=== PATIENT | female | born 1995 | race Caucasian/White ===

== ENCOUNTER 2016-09-20 23:46 | Emergency (ER) | payer OTHER ==
[~2016-09-20] VITALS: Ht 165.1 cm; Wt 49.5 kg
[~2016-09-20 23:46] MED LIST: ALLEGRA ALLERG180 MG PO; AMOXICILLIN500 M1 PO; AMOXICILLIN500 MG PO; AMOXICILLIN875 MG PO; AMPICILLIN TRI500 MG PO; AURALGAN14.8 ML BOTH EARS; BACTRIM,SEPT1 TABLET PO; CEFDINIR300 MG PO; CELEXA20 MG PO; DEBROX15 ML BOTH EARS; DEPAKOTE500 MG PO; DESYREL 150 MG150 MG PO; DIVALPROEX SOD500 MG PO; DULCOLAX10 MG PR; ELIMITE 5% CREA60 GM TP; ERYTHROMYC1 APPLICAT BOTH EYES; ERYTHROMYCIN O3.5 GM BOTH EYES; FALMINA1 EACH PO; FLEXERIL10 MG PO; FLINTSTONES CO1 EAC1 PO; FLONASE16 G1 BOTH NARES; FLUCONAZOLE150 MG PO; HYDROXYZINE HCL10 MG PO; HYDROXYZINE HCL25 MG PO; IBUPROFEN800 MG PO; KALETRA 200/501 TAB PO; KEFLEX500 MG PO; LAMOTRIGINE150 MG PO; LATUDA20 MG PO; LIBRIUM25 MG PO; LITHIUM CARBON150 MG PO; LORATADINE10 M2 PO; MACROBID100 MG PO; METRONIDAZOLE500 MG PO; MOTRIN600 MG PO; MOTRIN800 MG PO; MUCINEX D ER T1 EACH PO; MUCUS ER600 MG PO; NAPROSYN500 MG PO; PNV PRENATAL P1 EACH PO; PRENATAL PLUS1 EAC3 PO; PRENATAL TABLE1 EAC3 PO; PYRIDIUM200 MG PO; SERTRALINE HCL25 MG PO; TERCONAZOLE20 GM VG; THIAMINE HCL100 MG PO; TORADOL10 MG PO; TRAZODONE HCL150 MG PO; TRAZODONE HCL50 MG PO; TRUVADA1 TABLET PO; ULTRAM50 MG PO; VALTREX1000 MG PO; ZOFRAN ODT4 MG PO; ZOLOFT25 MG PO
[2016-09-21] MEDS ORDERED: NAPROSYN500 MG PO (01:31)
[2016-09-21 02:22] VITALS: BP 101/71
== END 2016-09-21 02:23 | disposition home or self-care (01) ==
LOC: EME 23:46 → RME 23:46
DX: S80.01XA Contusion of right knee, initial encounter (principal); W19.XXXA Unspecified fall, initial encounter; F17.200 Nicotine dependence, unspecified, uncomplicated
CPT/HCPCS: 73564; 99281; 99283

== ENCOUNTER 2016-10-19 21:44 | Emergency (ER) | payer OTHER ==
[~2016-10-19] VITALS: Ht 165.1 cm; Wt 51.0 kg
[2016-10-19 23:22] LABS: ADD MIUA? YES; BILIRUBIN NEGATIVE; BLOOD MODERATE; COLOR STRAW ((YELLOW)); GLUCOSE (STRIP) NEGATIVE; KETONES NEGATIVE; LEUKOCYTES NEGATIVE; NITRITE NEGATIVE; PROTEIN (STRIP) NEGATIVE; SPECIFIC GRAVITY 1.011 (1.000-1.030); UROBILINOGEN 0.2 MG/DL (0.2-1.0)
[2016-10-19 23:30] LABS: HEMATOCRIT 46.6 % (36.0-46.0); MCH 31.1 PG (29.0-34.0); MCHC 33.3 G/DL (30.0-36.0); MCV 93.6 FL (83-99); MEAN PLAT.VOLUME 9.5 uM^3 (9.5-12.4); PLATELET COUNT 239 K/uL (156-360); RBC DIS.WIDTH-CV 12.2 % (11.8-14.6); RBC DIS.WIDTH-SD 42.5 % (39-53); RED BLOOD COUNT 4.98 M/uL (3.80-5.20); WHITE BLOOD COUNT 8.2 K/uL (4.1-10.2)
[2016-10-19 23:35] LABS: BACTERIA NONE SEEN /HPF; COCAINE NEGATIVE (150 ng/mL); EPITHELIAL CELLS RARE /HPF; METHAMPHETAMINE NEGATIVE (500 ng/mL); MUCUS TRACE /LPF; OPIATES (MORPHINE) NEGATIVE (100 ng/mL); PHENCYCLIDINE NEGATIVE (25 ng/mL); RED BLOOD CELLS 15-20 /HPF (0-5); THC CANNABINOIDS NEGATIVE (50 ng/mL); UCUL ADDED? NO; WHITE BLOOD CELLS 0-5 /HPF (0-5)
[2016-10-19 23:36] LABS: AMPHETAMINE NEGATIVE (500 ng/mL); BARBITURATES NEGATIVE (200 ng/mL); BENZODIAZEPINES NEGATIVE (150 ng/mL); INTERNAL CONTROLS VALID? YES; METHADONE NEGATIVE (200 ng/mL); OXYCODONE NEGATIVE (100 ng/mL); PROPOXYPHENE NEGATIVE (300 ng/mL); TRICYCLIC ANTIDEPRESSANTS NEGATIVE (300 ng/mL)
[2016-10-19 23:38] LABS: CHLORIDE 104 mEq/L (99-109); POTASSIUM 4.1 mEq/L (3.7-5.4); SODIUM 140 mEq/L (136-147)
[2016-10-19 23:40] LABS: GLUCOSE 92 mg/dL (70-99)
[2016-10-19 23:41] LABS: ANION GAP 11 MEQ/L (2-14)
[2016-10-19 23:43] LABS: SERUM ETHYL ALCOHOL < 10 mg/dL
[2016-10-19 23:44] LABS: GFR ESTIMATE (CALCULATED) > 59 mL/min/
[2016-10-19 23:45] LABS: UREA NITROGEN (BUN) 19 mg/dL (9-23)
[2016-10-19 23:53] LABS: QUANTITATIVE HCG < 4.0 MIU/ML
[2016-10-20 00:21] VITALS: BP 144/98
== END 2016-10-20 00:21 | disposition home or self-care (01) ==
LOC: EME 21:44
PROVIDERS: Emergency Medicine
DX: F32.9 Major depressive disorder, single episode, unspecified (principal); F43.9 Reaction to severe stress, unspecified; R31.9 Hematuria, unspecified; Z91.14 Patient's other noncompliance with medication regimen; R45.850 Homicidal ideations; R45.851 Suicidal ideations; J45.909 Unspecified asthma, uncomplicated; F90.0 Attention-deficit hyperactivity disorder, predominantly inattentive type; G93.1 Anoxic brain damage, not elsewhere classified; F20.9 Schizophrenia, unspecified; F14.10 Cocaine abuse, uncomplicated; F84.5 Asperger's syndrome; F17.200 Nicotine dependence, unspecified, uncomplicated
CPT/HCPCS: 80048; 81003; 84702; 85027; 90839; 99281; 99284; G0480

== ENCOUNTER 2016-11-03 00:25 | Emergency (ER) | payer OTHER ==
[~2016-11-03] VITALS: Ht 165.1 cm; Wt 51.3 kg
[2016-11-03 01:00] LABS: HEMATOCRIT 44.9 % (36.0-46.0); MCH 30.7 PG (29.0-34.0); MCHC 32.7 G/DL (30.0-36.0); MCV 93.7 FL (83-99); MEAN PLAT.VOLUME 9.4 uM^3 (9.5-12.4); PLATELET COUNT 231 K/uL (156-360); RBC DIS.WIDTH-SD 41.8 % (39-53); RED BLOOD COUNT 4.79 M/uL (3.80-5.20); WHITE BLOOD COUNT 7.9 K/uL (4.1-10.2)
[2016-11-03 01:13] LABS: CHLORIDE 111 mEq/L (99-109); SODIUM 145 mEq/L (136-147)
[2016-11-03 01:15] LABS: GLUCOSE 85 mg/dL (70-99)
[2016-11-03 01:17] LABS: ANION GAP 10 MEQ/L (2-14)
[2016-11-03 01:18] LABS: SERUM ETHYL ALCOHOL 76 mg/dL
[2016-11-03 01:19] LABS: GFR ESTIMATE (CALCULATED) > 59 mL/min/
[2016-11-03 01:20] LABS: UREA NITROGEN (BUN) 16 mg/dL (9-23)
[2016-11-03 01:31] LABS: QUANTITATIVE HCG < 4.0 MIU/ML
[2016-11-03] MEDS ORDERED: LIBRIUM25 MG PO (01:49)
[2016-11-03] MEDS ORDERED: THIAMINE HCL100 MG PO (01:49)
[2016-11-03 02:57] LABS: ADD MIUA? NO; BILIRUBIN NEGATIVE; BLOOD NEGATIVE; COLOR YELLOW ((YELLOW)); GLUCOSE (STRIP) NEGATIVE; KETONES NEGATIVE; LEUKOCYTES NEGATIVE; NITRITE NEGATIVE; PROTEIN (STRIP) NEGATIVE; SPECIFIC GRAVITY 1.009 (1.000-1.030); UCUL ADDED? NO; UROBILINOGEN 0.2 MG/DL (0.2-1.0)
[2016-11-03 03:06] LABS: ADD MEDTOX COMMENT Y; AMPHETAMINE NEGATIVE (500 ng/mL); BARBITURATES NEGATIVE (200 ng/mL); BENZODIAZEPINES NEGATIVE (150 ng/mL); COCAINE PRESUMPTIVE POSITIVE (150 ng/mL); INTERNAL CONTROLS VALID? YES; METHADONE NEGATIVE (200 ng/mL); METHAMPHETAMINE NEGATIVE (500 ng/mL); OPIATES (MORPHINE) NEGATIVE (100 ng/mL); OXYCODONE NEGATIVE (100 ng/mL); PHENCYCLIDINE NEGATIVE (25 ng/mL); PROPOXYPHENE NEGATIVE (300 ng/mL); THC CANNABINOIDS NEGATIVE (50 ng/mL); TRICYCLIC ANTIDEPRESSANTS NEGATIVE (300 ng/mL)
[2016-11-03 04:10] VITALS: BP 100/55
== END 2016-11-03 04:26 | disposition home or self-care (01) ==
LOC: EME 00:25
PROVIDERS: Emergency Medicine
DX: F10.10 Alcohol abuse, uncomplicated (principal); F19.10 Other psychoactive substance abuse, uncomplicated; R51 Headache; F17.200 Nicotine dependence, unspecified, uncomplicated; Y90.3 Blood alcohol level of 60-79 mg/100 ml; Z88.8 Allergy status to other drugs, medicaments and biological substances; Z91.041 Radiographic dye allergy status; Z91.013 Allergy to seafood
CPT/HCPCS: 80048; 81003; 84702; 84999; 85027; 99281; 99284; G0480

== ENCOUNTER 2016-11-12 08:44 | Emergency (ER) | payer OTHER ==
[~2016-11-12] VITALS: Ht 166.4 cm; Wt 48.2 kg
[2016-11-12 09:15] LABS: EOSINOPHIL (%) 0.6 % (0-5); HEMATOCRIT 42.3 % (36.0-46.0); IMMATURE GRANULOCYTE (%) 0.1 % (0.0-0.7); INSTRUMENT ABS NEUTROPHIL CT 3.9 K/uL; LYMPHOCYTE COUNT 2.5 K/uL (1.0-2.8); MCH 30.7 PG (29.0-34.0); MCHC 33.3 G/DL (30.0-36.0); MCV 92.2 FL (83-99); MEAN PLAT.VOLUME 9.5 uM^3 (9.5-12.4); MONOCYTE (%) 7.9 % (3-12); MONOCYTE COUNT 0.6 K/uL (0-0.8); NEUTROPHIL (%) 55.1 % (45-76); NEUTROPHIL COUNT 3.9 K/uL (1.8-6.4); PLATELET COUNT 222 K/uL (156-360); RBC DIS.WIDTH-CV 12.4 % (11.8-14.6); RBC DIS.WIDTH-SD 41.4 % (39-53); RED BLOOD COUNT 4.59 M/uL (3.80-5.20); WHITE BLOOD COUNT 7.1 K/uL (4.1-10.2)
[2016-11-12 09:23] LABS: CHLORIDE 107 mEq/L (99-109); POTASSIUM 3.5 mEq/L (3.7-5.4); SODIUM 143 mEq/L (136-147)
[2016-11-12 09:25] LABS: GLUCOSE 87 mg/dL (70-99)
[2016-11-12 09:26] LABS: ANION GAP 12 MEQ/L (2-14)
[2016-11-12 09:28] LABS: SERUM ETHYL ALCOHOL < 10 mg/dL
[2016-11-12 09:29] LABS: GFR ESTIMATE (CALCULATED) > 59 mL/min/
[2016-11-12 09:30] LABS: UREA NITROGEN (BUN) 16 mg/dL (9-23)
[2016-11-12 09:37] LABS: QUANTITATIVE HCG < 4.0 MIU/ML
[2016-11-12 11:16] LABS: ADD MIUA? YES; BILIRUBIN NEGATIVE; BLOOD NEGATIVE; COLOR YELLOW ((YELLOW)); GLUCOSE (STRIP) NEGATIVE; KETONES 20; LEUKOCYTES SMALL; NITRITE NEGATIVE; PROTEIN (STRIP) 30; SPECIFIC GRAVITY 1.024 (1.000-1.030); UROBILINOGEN 0.2 MG/DL (0.2-1.0)
[2016-11-12 11:29] LABS: COCAINE PRESUMPTIVE POSITIVE (150 ng/mL); PHENCYCLIDINE NEGATIVE (25 ng/mL); THC CANNABINOIDS PRESUMPTIVE POSITIVE (50 ng/mL)
[2016-11-12 11:30] LABS: ADD MEDTOX COMMENT Y; AMPHETAMINE NEGATIVE (500 ng/mL); BARBITURATES NEGATIVE (200 ng/mL); BENZODIAZEPINES NEGATIVE (150 ng/mL); INTERNAL CONTROLS VALID? YES; METHADONE NEGATIVE (200 ng/mL); METHAMPHETAMINE NEGATIVE (500 ng/mL); OPIATES (MORPHINE) NEGATIVE (100 ng/mL); OXYCODONE NEGATIVE (100 ng/mL); PROPOXYPHENE NEGATIVE (300 ng/mL); TRICYCLIC ANTIDEPRESSANTS NEGATIVE (300 ng/mL)
[2016-11-12 11:38] LABS: BACTERIA 2+ /HPF; CASTS PRESENT /LPF; EPITHELIAL CELLS 1+ /HPF; HYALINE CASTS 0-5 /LPF; MUCUS 3+ /LPF; RED BLOOD CELLS 0-5 /HPF (0-5); WHITE BLOOD CELLS 20-30 /HPF (0-5)
[2016-11-12 12:54] VITALS: BP 91/57
== END 2016-11-12 12:56 ==
LOC: EME 08:44
PROVIDERS: Nurse Practitioner Family
DX: F33.1 Major depressive disorder, recurrent, moderate (principal); F14.10 Cocaine abuse, uncomplicated; F12.10 Cannabis abuse, uncomplicated; Z91.5 Personal history of self-harm; F17.200 Nicotine dependence, unspecified, uncomplicated; Z86.73 Personal history of transient ischemic attack (TIA), and cerebral infarction without residual deficits
CPT/HCPCS: 80048; 81003; 84702; 84999; 85025; 90837; 99281; 99285; G0480

== ENCOUNTER 2016-11-21 01:48 | Emergency (ER) | payer OTHER ==
[~2016-11-21] VITALS: Ht 165.1 cm; Wt 49.8 kg
[2016-11-21 05:28] VITALS: BP 99/65
== END 2016-11-21 05:29 | disposition home or self-care (01) ==
LOC: EME 01:48
DX: S09.90XA Unspecified injury of head, initial encounter (principal); S13.4XXA Sprain of ligaments of cervical spine, initial encounter; S60.221A Contusion of right hand, initial encounter; Y04.8XXA Assault by other bodily force, initial encounter; Y07.50 Unspecified non-family member, perpetrator of maltreatment and neglect; Z88.8 Allergy status to other drugs, medicaments and biological substances; Z91.013 Allergy to seafood; Z91.041 Radiographic dye allergy status
CPT/HCPCS: 70450; 72125; 73130; 99281; 99283

== ENCOUNTER 2017-01-24 15:53 | Emergency (ER) | payer OTHER ==
[~2017-01-24] VITALS: Ht 165.1 cm; Wt 48.1 kg
[2017-01-24 16:38] LABS: HEMATOCRIT 43.7 % (36.0-46.0); MCH 30.7 PG (29.0-34.0); MCV 93.2 FL (83-99); MEAN PLAT.VOLUME 9.2 uM^3 (9.5-12.4); PLATELET COUNT 197 K/uL (156-360); RBC DIS.WIDTH-CV 12.7 % (11.8-14.6); RBC DIS.WIDTH-SD 43.3 % (39-53); RED BLOOD COUNT 4.69 M/uL (3.80-5.20); WHITE BLOOD COUNT 5.7 K/uL (4.1-10.2)
[2017-01-24 16:46] LABS: CHLORIDE 108 mEq/L (99-109); POTASSIUM 4.1 mEq/L (3.7-5.4); SODIUM 144 mEq/L (136-147)
[2017-01-24 16:48] LABS: GLUCOSE 80 mg/dL (70-99)
[2017-01-24 16:49] LABS: ANION GAP 9 MEQ/L (2-14)
[2017-01-24 16:50] LABS: TOTAL BILIRUBIN 0.9 mg/dL (0.0-1.0)
[2017-01-24 16:52] LABS: ALKALINE PHOSPHATASE 43 IU/L (3-129); GFR ESTIMATE (CALCULATED) > 59 mL/min/
[2017-01-24 16:53] LABS: UREA NITROGEN (BUN) 16 mg/dL (9-23)
[2017-01-24 17:02] LABS: QUANTITATIVE HCG < 4.0 MIU/ML
[2017-01-24 18:08] LABS: ADD MIUA? YES; BILIRUBIN NEGATIVE; BLOOD NEGATIVE; COLOR AMBER ((YELLOW)); GLUCOSE (STRIP) NEGATIVE; KETONES 20; LEUKOCYTES SMALL; NITRITE NEGATIVE; PROTEIN (STRIP) 30; SPECIFIC GRAVITY 1.023 (1.000-1.030)
[2017-01-24 18:44] LABS: BACTERIA 1+ /HPF; CASTS PRESENT /LPF; CRYSTALS NONE SEEN; EPITHELIAL CELLS 1+ /HPF; HYALINE CASTS RARE /LPF; MUCUS 3+ /LPF; RED BLOOD CELLS 0-5 /HPF (0-5); UCUL ADDED? NO; WHITE BLOOD CELLS 0-5 /HPF (0-5)
[2017-01-24] MEDS ORDERED: CIPRO500 MG PO (21:30)
[2017-01-24 21:36] VITALS: BP 106/60
[2017-01-26 12:40] LABS: CHLAMYDIA TRACHOMATIS NEGATIVE; NEISSERIA GONORRHOEAE NEGATIVE
== END 2017-01-24 21:37 | disposition home or self-care (01) ==
LOC: EME 15:53
PROVIDERS: Emergency Medicine
DX: N39.0 Urinary tract infection, site not specified (principal); N83.292 Other ovarian cyst, left side; Z86.73 Personal history of transient ischemic attack (TIA), and cerebral infarction without residual deficits; J45.909 Unspecified asthma, uncomplicated; F84.5 Asperger's syndrome; Z95.1 Presence of aortocoronary bypass graft; F17.200 Nicotine dependence, unspecified, uncomplicated
CPT/HCPCS: 76856; 80053; 81003; 84702; 85027; 87491; 87591; 99281; 99283

== ENCOUNTER 2017-01-29 08:09 | Emergency (ER) | payer OTHER ==
[~2017-01-29] VITALS: Ht 165.1 cm; Wt 51.0 kg
[~2017-01-29 08:09] MED LIST changes: +CIPRO500 MG PO
[2017-01-29 08:44] LABS: EOSINOPHIL (%) 0.9 % (0-5); EOSINOPHIL COUNT 0.1 K/uL (0-0.3); HEMATOCRIT 39.1 % (36.0-46.0); IMMATURE GRANULOCYTE (%) 0.2 % (0.0-0.7); LYMPHOCYTE COUNT 2.3 K/uL (1.0-2.8); MCH 30.6 PG (29.0-34.0); MCHC 32.7 G/DL (30.0-36.0); MCV 93.5 FL (83-99); MEAN PLAT.VOLUME 9.6 uM^3 (9.5-12.4); MONOCYTE (%) 5.3 % (3-12); MONOCYTE COUNT 0.3 K/uL (0-0.8); NEUTROPHIL (%) 53.4 % (45-76); PLATELET COUNT 171 K/uL (156-360); RBC DIS.WIDTH-CV 12.7 % (11.8-14.6); RBC DIS.WIDTH-SD 43.5 % (39-53); RED BLOOD COUNT 4.18 M/uL (3.80-5.20); WHITE BLOOD COUNT 5.7 K/uL (4.1-10.2)
[2017-01-29 09:00] LABS: CHLORIDE 109 mEq/L (99-109); POTASSIUM 4.1 mEq/L (3.7-5.4); SODIUM 142 mEq/L (136-147)
[2017-01-29 09:01] LABS: GLUCOSE 94 mg/dL (70-99)
[2017-01-29 09:03] LABS: ANION GAP 5 MEQ/L (2-14)
[2017-01-29 09:05] LABS: GFR ESTIMATE (CALCULATED) > 59 mL/min/
[2017-01-29 09:06] LABS: UREA NITROGEN (BUN) 12 mg/dL (9-23)
[2017-01-29 09:14] LABS: QUANTITATIVE HCG < 4.0 MIU/ML
[2017-01-29 09:45] LABS: ADD MIUA? YES; BILIRUBIN NEGATIVE; BLOOD NEGATIVE; COLOR YELLOW ((YELLOW)); GLUCOSE (STRIP) NEGATIVE; KETONES NEGATIVE; LEUKOCYTES MODERATE; NITRITE NEGATIVE; PROTEIN (STRIP) NEGATIVE; SPECIFIC GRAVITY 1.013 (1.000-1.030); UROBILINOGEN 0.2 MG/DL (0.2-1.0)
[2017-01-29 09:49] LABS: BACTERIA NONE SEEN /HPF; EPITHELIAL CELLS RARE /HPF; MUCUS TRACE /LPF; RED BLOOD CELLS 0-5 /HPF (0-5); WHITE BLOOD CELLS 0-5 /HPF (0-5)
[2017-01-29 11:32] VITALS: BP 100/56
== END 2017-01-29 11:41 | disposition home or self-care (01) ==
LOC: EME → EDBD 08:09 → EME 11:41
PROVIDERS: Physician Assistant
DX: B34.9 Viral infection, unspecified (principal); R05 Cough; R10.9 Unspecified abdominal pain; R06.02 Shortness of breath; R11.0 Nausea; R07.9 Chest pain, unspecified; F14.90 Cocaine use, unspecified, uncomplicated; F17.200 Nicotine dependence, unspecified, uncomplicated; Z59.0 Homelessness
CPT/HCPCS: 71020; 80048; 81003; 84702; 85025; 99281; 99283

== ENCOUNTER 2017-02-04 20:19 | Emergency (ER) | payer OTHER ==
[~2017-02-04] VITALS: Ht 165.1 cm; Wt 49.5 kg
[2017-02-04 22:18] VITALS: BP 121/96
[2017-02-05] MEDS ORDERED: MOTRIN600 MG PO (21:39)
== END 2017-02-04 22:18 ==
LOC: EME → EDBD 20:19 → EME 20:19
DX: S31.144A Puncture wound of abdominal wall with foreign body, left lower quadrant without penetration into peritoneal cavity, initial encounter (principal); Y35.893A Legal intervention involving other specified means, suspect injured, initial encounter
CPT/HCPCS: 99281; 99284

== ENCOUNTER 2017-02-05 20:31 | Emergency (ER) | payer OTHER ==
[~2017-02-05] VITALS: Ht 165.1 cm; Wt 49.5 kg
[2017-02-05] MEDS ORDERED: MOTRIN600 MG PO (21:39)
[2017-02-05 22:04] VITALS: BP 111/64
== END 2017-02-05 22:05 | disposition home or self-care (01) ==
LOC: EME 20:31
DX: S30.811D Abrasion of abdominal wall, subsequent encounter (principal); Z48.00 Encounter for change or removal of nonsurgical wound dressing; Y35 Legal intervention; F17.200 Nicotine dependence, unspecified, uncomplicated; Z91.041 Radiographic dye allergy status; Z88.8 Allergy status to other drugs, medicaments and biological substances
CPT/HCPCS: 99281; 99284

== ENCOUNTER 2017-02-20 08:00 | Emergency (ER) | payer OTHER ==
[~2017-02-20] VITALS: Ht 165.1 cm; Wt 49.2 kg
[2017-02-20 09:13] LABS: INTERNAL CONTROL VALID? YES
[2017-02-20] MEDS ORDERED: ZITHROMAX Z-PA250 MG PO (10:10)
[2017-02-20 10:30] VITALS: BP 105/64
== END 2017-02-20 10:56 | disposition home or self-care (01) ==
LOC: EME 08:00
PROVIDERS: Physician Assistant
DX: J20.9 Acute bronchitis, unspecified (principal); R11.0 Nausea; F17.200 Nicotine dependence, unspecified, uncomplicated
CPT/HCPCS: 71020; 84703; 99281; 99283

== ENCOUNTER 2017-02-27 03:20 | Emergency (ER) | payer OTHER ==
[~2017-02-27] VITALS: Ht 165.1 cm; Wt 50.1 kg
[~2017-02-27 03:20] MED LIST changes: +ZITHROMAX Z-PA250 MG PO
[2017-02-27 04:46] LABS: INFLUENZA A VIRAL ANTIGEN NEGATIVE; INFLUENZA B VIRAL ANTIGEN NEGATIVE
[2017-02-27 04:58] LABS: ADD MIUA? YES; BILIRUBIN NEGATIVE; BLOOD NEGATIVE; COLOR YELLOW ((YELLOW)); GLUCOSE (STRIP) NEGATIVE; KETONES NEGATIVE; LEUKOCYTES MODERATE; NITRITE NEGATIVE; PROTEIN (STRIP) NEGATIVE; SPECIFIC GRAVITY 1.014 (1.000-1.030); UROBILINOGEN 0.2 MG/DL (0.2-1.0)
[2017-02-27 04:59] LABS: INTERNAL CONTROL VALID? YES
[2017-02-27 05:09] LABS: BACTERIA NONE SEEN /HPF; EPITHELIAL CELLS RARE /HPF; MUCUS TRACE /LPF; RED BLOOD CELLS 0-5 /HPF (0-5); UCUL ADDED? NO; WHITE BLOOD CELLS 0-5 /HPF (0-5)
[2017-02-27] MEDS ORDERED: KEFLEX500 MG PO (05:22)
[2017-02-27 05:45] VITALS: BP 97/57
== END 2017-02-27 05:45 | disposition home or self-care (01) ==
LOC: EME 03:20
PROVIDERS: Emergency Medicine
DX: J06.9 Acute upper respiratory infection, unspecified (principal); N39.0 Urinary tract infection, site not specified; R19.7 Diarrhea, unspecified; F17.200 Nicotine dependence, unspecified, uncomplicated
CPT/HCPCS: 71020; 81003; 84703; 87502; 94640; 99281; 99284

== ENCOUNTER 2017-05-12 23:30 | Emergency (ER) | payer OTHER ==
[~2017-05-12] VITALS: Ht 165.1 cm; Wt 53.3 kg
[2017-05-13 00:07] LABS: HEMATOCRIT 38.7 % (36.0-46.0); MCHC 33.9 G/DL (30.0-36.0); MCV 91.7 FL (83-99); MEAN PLAT.VOLUME 9.2 uM^3 (9.5-12.4); PLATELET COUNT 152 K/uL (156-360); RBC DIS.WIDTH-CV 11.7 % (11.8-14.6); RBC DIS.WIDTH-SD 39.5 % (39-53); RED BLOOD COUNT 4.22 M/uL (3.80-5.20)
[2017-05-13 00:14] LABS: CHLORIDE 105 mEq/L (99-109); SODIUM 138 mEq/L (136-147)
[2017-05-13 00:16] LABS: GLUCOSE 100 mg/dL (70-99)
[2017-05-13 00:17] LABS: ANION GAP 8 MEQ/L (2-14)
[2017-05-13 00:20] LABS: GFR ESTIMATE (CALCULATED) > 59 mL/min/; UREA NITROGEN (BUN) 12 mg/dL (9-23)
[2017-05-13 00:31] LABS: QUANTITATIVE HCG < 4.0 MIU/ML
[2017-05-13 02:09] LABS: TROP-I INTERPRETATION NEGATIVE; TROPONIN-I 0.05 ng/mL (0.0-0.30)
[2017-05-13 02:10] LABS: TOTAL BILIRUBIN 0.2 mg/dL (0.0-1.0)
[2017-05-13 02:11] LABS: ALKALINE PHOSPHATASE 61 IU/L (3-129)
[2017-05-13 02:14] LABS: DIRECT BILIRUBIN 0.1 mg/dL (0.0-0.3)
[2017-05-13 02:15] LABS: LIPASE 23 U/L (1.0-51.0)
[2017-05-13 02:43] LABS: ADD MIUA? YES; BILIRUBIN NEGATIVE; BLOOD SMALL; COLOR STRAW ((YELLOW)); GLUCOSE (STRIP) NEGATIVE; KETONES NEGATIVE; LEUKOCYTES LARGE; NITRITE NEGATIVE; PROTEIN (STRIP) NEGATIVE; SPECIFIC GRAVITY 1.009 (1.000-1.030); UROBILINOGEN 0.2 MG/DL (0.2-1.0)
[2017-05-13 03:20] LABS: RED BLOOD CELLS 0-5 /HPF (0-5)
[2017-05-13 03:21] LABS: EPITHELIAL CELLS 1+ /HPF; MUCUS NONE SEEN /LPF
[2017-05-13 03:22] LABS: BACTERIA 1+ /HPF; CASTS NONE SEEN /LPF; CRYSTALS NONE SEEN; UCUL ADDED? YES
[2017-05-13] MEDS ORDERED: FLAGYL250 MG PO (03:42)
[2017-05-13] MEDS ORDERED: BACTRIM,SEPT1 TABLET PO (03:42)
[2017-05-13 04:14] VITALS: BP 120/75
[2017-05-14 13:42] LABS: CHLAMYDIA TRACHOMATIS NEGATIVE; NEISSERIA GONORRHOEAE NEGATIVE
== END 2017-05-13 04:15 | disposition home or self-care (01) ==
LOC: EME 23:30
PROVIDERS: Emergency Medicine; Physician Assistant
DX: N39.0 Urinary tract infection, site not specified (principal); N76.0 Acute vaginitis; R51 Headache; R55 Syncope and collapse; J45.909 Unspecified asthma, uncomplicated; F90.9 Attention-deficit hyperactivity disorder, unspecified type; F31.9 Bipolar disorder, unspecified; F84.5 Asperger's syndrome; F20.9 Schizophrenia, unspecified; F17.200 Nicotine dependence, unspecified, uncomplicated; Z88.8 Allergy status to other drugs, medicaments and biological substances; Z87.440 Personal history of urinary (tract) infections; M41.9 Scoliosis, unspecified
CPT/HCPCS: 70450; 80048; 80076; 81003; 83690; 84484; 84702; 85027; 87086; 87210; 87491; 87591; 93005; 99281; 99284

== ENCOUNTER 2017-05-29 08:27 | Emergency (ER) | payer OTHER ==
[~2017-05-29] VITALS: Ht 165.1 cm; Wt 53.5 kg
[~2017-05-29 08:27] MED LIST changes: +FLAGYL250 MG PO; +PREDNISONE20 MG PO
[2017-05-29 09:19] LABS: HEMATOCRIT 37.1 % (36.0-46.0); MCHC 33.7 G/DL (30.0-36.0); MCV 92.1 FL (83-99); RBC DIS.WIDTH-CV 12.2 % (11.8-14.6); RBC DIS.WIDTH-SD 40.5 % (39-53); RED BLOOD COUNT 4.03 M/uL (3.80-5.20)
[2017-05-29 09:21] LABS: PLATELET COUNT 233 K/uL (156-360)
[2017-05-29 09:29] LABS: CHLORIDE 107 mEq/L (99-109); POTASSIUM 3.4 mEq/L (3.7-5.4); SODIUM 143 mEq/L (136-147)
[2017-05-29 09:31] LABS: GLUCOSE 128 mg/dL (70-99)
[2017-05-29 09:32] LABS: ANION GAP 10 MEQ/L (2-14)
[2017-05-29 09:35] LABS: GFR ESTIMATE (CALCULATED) > 59 mL/min/
[2017-05-29 09:36] LABS: UREA NITROGEN (BUN) 13 mg/dL (9-23)
[2017-05-29 09:44] LABS: QUANTITATIVE HCG < 4.0 MIU/ML
[2017-05-29] MEDS ORDERED: ULTRAM50 MG PO (10:16)
[2017-05-29] MEDS ORDERED: ZOFRAN ODT4 MG PO (10:16)
[2017-05-29 10:32] LABS: ADD MIUA? YES; BILIRUBIN NEGATIVE; BLOOD SMALL; COLOR AMBER ((YELLOW)); GLUCOSE (STRIP) NEGATIVE; KETONES NEGATIVE; LEUKOCYTES LARGE; NITRITE NEGATIVE; PROTEIN (STRIP) 30; SPECIFIC GRAVITY 1.026 (1.000-1.030)
[2017-05-29 10:45] LABS: BACTERIA RARE /HPF; EPITHELIAL CELLS 3+ /HPF; MUCUS 4+ /LPF; RED BLOOD CELLS 40-50 /HPF (0-5); WHITE BLOOD CELLS TNTC /HPF (0-5)
[2017-05-29] MEDS ORDERED: BACTRIM,SEPT1 TABLET PO (10:55)
[2017-05-29 11:29] VITALS: BP 115/67
== END 2017-05-29 11:30 | disposition home or self-care (01) ==
LOC: EME → EDBD 08:27 → EME 11:30
PROVIDERS: Nurse Practitioner Family
DX: B02.9 Zoster without complications (principal); N39.0 Urinary tract infection, site not specified; R11.2 Nausea with vomiting, unspecified; R10.84 Generalized abdominal pain; J45.909 Unspecified asthma, uncomplicated; F90.9 Attention-deficit hyperactivity disorder, unspecified type; F20.9 Schizophrenia, unspecified; F84.5 Asperger's syndrome; F17.200 Nicotine dependence, unspecified, uncomplicated
CPT/HCPCS: 80048; 81003; 84702; 85027; 99281; 99283

== ENCOUNTER 2017-06-13 16:44 | Emergency (ER) | payer OTHER ==
[~2017-06-13] VITALS: Ht 165.1 cm; Wt 47.6 kg
[2017-06-13 17:48] LABS: ADD MIUA? YES; BILIRUBIN NEGATIVE; BLOOD SMALL; COLOR YELLOW ((YELLOW)); GLUCOSE (STRIP) NEGATIVE; KETONES 5; LEUKOCYTES LARGE; NITRITE NEGATIVE; PROTEIN (STRIP) NEGATIVE; SPECIFIC GRAVITY 1.016 (1.000-1.030); UROBILINOGEN 0.2 MG/DL (0.2-1.0)
[2017-06-13 17:51] LABS: INTERNAL CONTROL VALID? YES
[2017-06-13 18:05] LABS: BACTERIA RARE /HPF; EPITHELIAL CELLS RARE /HPF; MUCUS TRACE /LPF; RED BLOOD CELLS 20-30 /HPF (0-5); UCUL ADDED? YES
[2017-06-13] MEDS ORDERED: MACROBID100 MG PO (18:14)
[2017-06-13] MEDS ORDERED: FLAGYL500 MG PO (18:14)
[2017-06-13 19:46] VITALS: BP 116/64
[2017-06-15 13:12] LABS: CHLAMYDIA TRACHOMATIS NEGATIVE; NEISSERIA GONORRHOEAE NEGATIVE
== END 2017-06-13 19:47 | disposition home or self-care (01) ==
LOC: EME 16:44
PROVIDERS: Emergency Medicine
DX: N39.0 Urinary tract infection, site not specified (principal); A59.01 Trichomonal vulvovaginitis; N76.0 Acute vaginitis; J45.909 Unspecified asthma, uncomplicated; F90.9 Attention-deficit hyperactivity disorder, unspecified type; F43.10 Post-traumatic stress disorder, unspecified; F84.5 Asperger's syndrome; F17.200 Nicotine dependence, unspecified, uncomplicated; F20.9 Schizophrenia, unspecified; Z88.8 Allergy status to other drugs, medicaments and biological substances
CPT/HCPCS: 81003; 84703; 87086; 87210; 87491; 87591; 99281; 99284

== ENCOUNTER 2017-09-05 04:38 | Emergency (ER) | payer OTHER ==
[~2017-09-05] VITALS: Ht 165.1 cm; Wt 48.0 kg
[~2017-09-05 04:38] MED LIST changes: +FLAGYL500 MG PO
[2017-09-05 05:56] VITALS: BP 100/56
== END 2017-09-05 05:57 | disposition home or self-care (01) ==
LOC: EME 04:38
PROVIDERS: Emergency Medicine
DX: J02.9 Acute pharyngitis, unspecified (principal); F17.200 Nicotine dependence, unspecified, uncomplicated; J45.909 Unspecified asthma, uncomplicated; F90.9 Attention-deficit hyperactivity disorder, unspecified type; F43.10 Post-traumatic stress disorder, unspecified; F20.9 Schizophrenia, unspecified; F84.5 Asperger's syndrome; Z88.8 Allergy status to other drugs, medicaments and biological substances
CPT/HCPCS: 87502; 87651 90; 99281; 99283

== ENCOUNTER 2017-10-15 15:02 | Emergency (ER) | payer OTHER ==
[~2017-10-15] VITALS: Ht 165.1 cm; Wt 47.2 kg
[2017-10-15 17:52] LABS: HEMATOCRIT 41.2 % (36.0-46.0); HEMOGLOBIN 13.8 G/DL (11.9-15.5); MCH 30.1 PG (29.0-34.0); MCHC 33.5 G/DL (30.0-36.0); PLATELET COUNT 198 K/uL (156-360); RBC DIS.WIDTH-CV 12.2 % (11.8-14.6); RBC DIS.WIDTH-SD 39.5 % (39-53); RED BLOOD COUNT 4.58 M/uL (3.80-5.20); WHITE BLOOD COUNT 9.2 K/uL (4.1-10.2)
[2017-10-15 18:01] LABS: CHLORIDE 102 mEq/L (99-109); POTASSIUM 4.6 mEq/L (3.7-5.4); SODIUM 136 mEq/L (136-147)
[2017-10-15 18:02] LABS: GLUCOSE 86 mg/dL (70-99)
[2017-10-15 18:06] LABS: CREATININE 0.7 mg/dL (0.6-1.3); GFR ESTIMATE (CALCULATED) > 59 mL/min/
[2017-10-15 18:07] LABS: UREA NITROGEN (BUN) 14 mg/dL (9-23)
[2017-10-15 18:17] LABS: QUANTITATIVE HCG < 4.0 MIU/ML
[2017-10-15 19:42] LABS: SOURCE SWAB
[2017-10-15] MEDS ORDERED: ACYCLOVIR800 MG PO (19:54)
[2017-10-15 21:48] VITALS: BP 113/73
== END 2017-10-15 21:51 | disposition home or self-care (01) ==
LOC: EME 15:02
PROVIDERS: Physician Assistant Medical
DX: B00.9 Herpesviral infection, unspecified (principal); J02.0 Streptococcal pharyngitis; F17.200 Nicotine dependence, unspecified, uncomplicated; J45.909 Unspecified asthma, uncomplicated; F90.9 Attention-deficit hyperactivity disorder, unspecified type; F43.10 Post-traumatic stress disorder, unspecified; F84.5 Asperger's syndrome
CPT/HCPCS: 80048; 84702; 85027; 87210; 87491; 87591; 87651 90; 99281; 99285; J0561; J0696